=== PATIENT | male | born 1965 | race Caucasian/White ===

== ENCOUNTER 2017-11-03 15:04 | Inpatient (IN) | payer OTHER ==
[~2017-11-03] VITALS: Ht 188 cm; Wt 90.3 kg
[2017-11-03] MEDS ORDERED: OXYC-302 PO (16:06)
[2017-11-03] MEDS ORDERED: SULF1TAB24 PO (16:06)
[2017-11-03] MEDS ORDERED: ONDA4TAB10 PO (16:06)
[2017-11-03] MEDS ORDERED: MORPHINE SULFATE 4 MG/ML, 1ML IVPush PRN (17:00)
[2017-11-03] MEDS ORDERED: SODIUM CHLORIDE 0.9% 1,000ML IV ONE (17:00)
[2017-11-03] MEDS ORDERED: ONDANSETRON 2MG/ML, 2ML IVPush ONE (17:00)
[2017-11-03] MEDS ORDERED: SODIUM CHLORIDE FLUSH 10ML SYR IVF ONE (17:00)
[2017-11-03] MEDS ORDERED: ONDANSETRON 2MG/ML, 2ML ONE (17:00)
[2017-11-03] MEDS ORDERED: MORPHINE SULFATE 4 MG/ML, 1ML ONE (17:00)
[2017-11-03 17:12] LABS: MEAN CORPUSCULAR HEMOGLOBIN 30.7 pg (27.5-34.5); MEAN CORPUSCULAR HGB CONC 32.6 g/dL (33.2-36.2); MEAN CORPUSCULAR VOLUME 94.1 fL (81-97); PLATELET COUNT 321 x10^3/uL (130-400); RED BLOOD COUNT 4.55 x10^6/uL (4.38-5.82); RED CELL DISTRIBUTION WIDTH 15.2 % (9.4-14.8)
[2017-11-03 17:19] LABS: ALBUMIN 3.7 g/dL (3.4-5.0); ANION GAP 6 mmol/L (5-15); CALCIUM 9.4 mg/dL (8.5-10.1); CHLORIDE 100 mmol/L (98-107)
[2017-11-03 17:23] LABS: ALANINE AMINOTRANSFERASE 26 U/L (12-78); ALKALINE PHOSPHATASE 122 U/L (45-117); BILIRUBIN,TOTAL 0.6 mg/dL (0.2-1.0); CREATININE 2.38 mg/dL (0.7-1.3); TOTAL PROTEIN 9.7 g/dL (6.4-8.2)
[2017-11-03 17:31] LABS: MICROSCOPIC AUTO
[2017-11-03 17:35] LABS: MD YES
[2017-11-03 17:36] LABS: CULTURE INDICATED? YES
[2017-11-03 17:38] LABS: BAND#(MANUAL) 2.33 x10^3/uL; BANDS%(MANUAL) 9 % (0-7); EOS#(MANUAL) 1.04 x10^3/uL (0.0-0.4); EOS% (MANUAL) 4 % (1-7); LYMPH#(MANUAL) 1.55 x10^3/uL (1-3.4); LYMPHS% (MANUAL) 6 % (22-44); MONOS#(MANUAL) 1.55 x10^3/uL (0.3-2.7); MONOS% (MANUAL) 6 % (2-9); SEG#(MANUAL) 19.43 x10^3/uL (1.8-6.8); SEGS% (MANUAL) 75 % (42-75)
[2017-11-03 17:39] LABS: <PLATELET ESTIMATE> ADEQUATE; <PLT MORPHOLOGY> NORMAL PLT MORPH; ANISOCYTOSIS 1+; TOXIC GRAN 1+
[2017-11-03] MEDS ORDERED: CEFTRIAXONE PMX 1GM/50ML 50 ML ONE (18:49)
[2017-11-03] MEDS ORDERED: HYDROmorphone 2 MG/ML, 1ML ONE ×2 (18:50→19:09)
[2017-11-03] MEDS ORDERED: HYDROmorphone 1 MG/ML, 1ML IVPush PRN (19:00)
[2017-11-03] MEDS ORDERED: SODIUM CHLORIDE 0.9% 1,000ML IVBOLUS ONE (19:00)
[2017-11-03] MEDS ORDERED: CEFTRIAXONE PMX 1GM/50ML 50 ML IVPB ONE (19:00)
[2017-11-03 20:00] VITALS: BP 153/84
[2017-11-03] MEDS ORDERED: TEMAZEPAM 15 MG CAPSULE PO PRN (20:00)
[2017-11-03] MEDS ORDERED: hydrALAzine 20 MG/ML, 1ML IVPush PRN (20:00)
[2017-11-03] MEDS ORDERED: morphine SULFATE 10 MG/ML, 1ML IVPush PRN (20:00)
[2017-11-03] MEDS ORDERED: DOCUSATE 100 MG CAPSULE PO PRN (20:00)
[2017-11-03] MEDS ORDERED: ACETAMINOPHEN 325 MG TABLET PO PRN (20:00)
[2017-11-03] MEDS ORDERED: ONDANSETRON 2MG/ML, 2ML IVPush PRN (20:00)
[2017-11-03] MEDS ORDERED: HYDROmorphone 2 MG/ML, 1ML IVPush PRN (22:00)
[2017-11-03] MEDS: HEPARIN 5,000 UNITS/ML, 1ML SQ SCH (22:11)
[2017-11-03] MEDS: SODIUM CHLORIDE 0.9% 1,000 ML IV SCH (22:12)
[2017-11-04 02:20] VITALS: BP 127/75
[2017-11-04 05:28] LABS: MEAN CORPUSCULAR HEMOGLOBIN 30.9 pg (27.5-34.5); MEAN CORPUSCULAR HGB CONC 32.9 g/dL (33.2-36.2); MEAN CORPUSCULAR VOLUME 93.9 fL (81-97); MEAN PLATELET VOLUME 8.2 fL (7.4-10.4); PLATELET COUNT 353 x10^3/uL (130-400); RED CELL DISTRIBUTION WIDTH 14.9 % (9.4-14.8)
[2017-11-04 05:40] LABS: ANION GAP 6 mmol/L (5-15); CALCIUM 8.6 mg/dL (8.5-10.1); CHLORIDE 103 mmol/L (98-107)
[2017-11-04] MEDS: CEFTRIAXONE 1,000 MG in DEXTROSE 5% 50 ML IV SCH ×2 (06:18→18:04)
[2017-11-04] MEDS: HEPARIN 5,000 UNITS/ML, 1ML SQ SCH ×3 (06:18→22:14)
[2017-11-04] MEDS: SODIUM CHLORIDE 0.9% 1,000 ML IV SCH ×3 (06:19→23:20)
[2017-11-04 06:33] LABS: MD YES
[2017-11-04 06:35] LABS: BAND#(MANUAL) 2.17 x10^3/uL; BANDS%(MANUAL) 10 % (0-7); EOS#(MANUAL) 0.22 x10^3/uL (0.0-0.4); EOS% (MANUAL) 1 % (1-7); LYMPH#(MANUAL) 2.82 x10^3/uL (1-3.4); LYMPHS% (MANUAL) 13 % (22-44); MONOS#(MANUAL) 0.65 x10^3/uL (0.3-2.7); MONOS% (MANUAL) 3 % (2-9); SEG#(MANUAL) 15.84 x10^3/uL (1.8-6.8); SEGS% (MANUAL) 73 % (42-75)
[2017-11-04 06:36] LABS: <PLATELET ESTIMATE> ADEQUATE; <PLT MORPHOLOGY> NORMAL PLT MORPH; <RBC MORPHOLOGY> NORMAL; TOXIC GRAN 1+
[2017-11-04] MEDS ORDERED: CEFTRIAXONE PMX 1GM/50ML 50 ML IV SCH (07:00)
[2017-11-04 08:30] VITALS: BP 107/68
[2017-11-04 14:30] VITALS: BP 119/73
[2017-11-04 18:54] VITALS: BP 103/55
[2017-11-05 04:13] VITALS: BP 144/83
[2017-11-05 05:27] LABS: MEAN CORPUSCULAR HEMOGLOBIN 31.1 pg (27.5-34.5); MEAN CORPUSCULAR HGB CONC 33.1 g/dL (33.2-36.2); MEAN CORPUSCULAR VOLUME 93.9 fL (81-97); MEAN PLATELET VOLUME 8.3 fL (7.4-10.4); PLATELET COUNT 374 x10^3/uL (130-400); RED BLOOD COUNT 4.23 x10^6/uL (4.38-5.82); RED CELL DISTRIBUTION WIDTH 15.1 % (9.4-14.8)
[2017-11-05 05:34] LABS: CALCIUM 9.3 mg/dL (8.5-10.1); CHLORIDE 107 mmol/L (98-107)
[2017-11-05 06:14] LABS: BASOPHILS # (AUTO) 0.07 x10^3/uL (0-0.1); BASOPHILS % (AUTO) 1 % (0-1); EOSINOPHILS # (AUTO) 0.26 x10^3/uL (0-0.4); EOSINOPHILS % (AUTO) 3 % (1-7); LYMPHOCYTES # (AUTO) 3.25 x10^3/uL (1-3.4); LYMPHOCYTES % (AUTO) 31 % (22-44); MD SCAN; MONOCYTES # (AUTO) 0.99 x10^3/uL (0.2-0.8); MONOCYTES % (AUTO) 9 % (2-9); NEUTROPHILS # (AUTO) 5.97 x10^3/uL (1.8-6.8); NEUTROPHILS % (AUTO) 57 % (42-75)
[2017-11-05 06:16] LABS: ANION GAP 6 mmol/L (5-15)
[2017-11-05] MEDS: CEFTRIAXONE 1,000 MG in DEXTROSE 5% 50 ML IV SCH ×2 (06:27→18:12)
[2017-11-05] MEDS: HEPARIN 5,000 UNITS/ML, 1ML SQ SCH ×3 (06:28→22:09)
[2017-11-05 07:41] VITALS: BP 114/68
[2017-11-05] MEDS: SODIUM CHLORIDE 0.9% 1,000 ML IV SCH ×2 (08:47→18:11)
[2017-11-05 13:23] VITALS: BP 149/80
[2017-11-05] MEDS ORDERED: OXYcodone/APAP 5/325MG TABLET ONE (18:20)
[2017-11-05] MEDS: OXYcodone/APAP 5/325MG TABLET PO PRN (18:22)
[2017-11-05 19:30] VITALS: BP 149/79
[2017-11-06 01:55] VITALS: BP 140/81
[2017-11-06] MEDS: SODIUM CHLORIDE 0.9% 1,000 ML IV SCH ×3 (05:30→22:17)
[2017-11-06] MEDS: HEPARIN 5,000 UNITS/ML, 1ML SQ SCH ×3 (05:30→22:18)
[2017-11-06] MEDS: CEFTRIAXONE 1,000 MG in DEXTROSE 5% 50 ML IV SCH (05:30)
[2017-11-06 05:31] LABS: CHLORIDE 109 mmol/L (98-107)
[2017-11-06 05:48] LABS: ANION GAP 8 mmol/L (5-15); CALCIUM 9.2 mg/dL (8.5-10.1); CREATININE 1.18 mg/dL (0.7-1.3)
[2017-11-06 07:27] VITALS: BP 138/67
[2017-11-06] MEDS: OXYcodone/APAP 5/325MG TABLET PO PRN (07:37)
[2017-11-06 08:25] LABS: CLOSTRIDIUM DIFFICILE ANTIGEN NEGATIVE; CLOSTRIDIUM DIFFICILE TOXIN NEGATIVE (Negative)
[2017-11-06] MEDS ORDERED: DIPHENOXYLATE/ATROPINE TABLET PO PRN (13:30)
[2017-11-06] MEDS: AMPICILLIN/SULBACTAM 3 GM in SODIUM CHLORIDE 0.9% 100 ML IV SCH ×2 (13:47→19:43)
[2017-11-06 14:04] VITALS: BP 122/77
[2017-11-06 19:23] VITALS: BP 124/69
[2017-11-07] MEDS: AMPICILLIN/SULBACTAM 3 GM in SODIUM CHLORIDE 0.9% 100 ML IV SCH ×2 (01:34→08:45)
[2017-11-07 03:23] VITALS: BP 159/80
[2017-11-07] MEDS: OXYcodone/APAP 5/325MG TABLET PO PRN ×3 (05:13→22:46)
[2017-11-07 05:18] LABS: BASOPHILS # (AUTO) 0.06 x10^3/uL (0-0.1); BASOPHILS % (AUTO) 1 % (0-1); EOSINOPHILS # (AUTO) 0.24 x10^3/uL (0-0.4); EOSINOPHILS % (AUTO) 2 % (1-7); LYMPHOCYTES # (AUTO) 3.29 x10^3/uL (1-3.4); LYMPHOCYTES % (AUTO) 31 % (22-44); MD NO; MEAN CORPUSCULAR HEMOGLOBIN 31.1 pg (27.5-34.5); MEAN CORPUSCULAR HGB CONC 32.9 g/dL (33.2-36.2); MEAN CORPUSCULAR VOLUME 94.7 fL (81-97); MEAN PLATELET VOLUME 8.8 fL (7.4-10.4); MONOCYTES # (AUTO) 0.89 x10^3/uL (0.2-0.8); MONOCYTES % (AUTO) 8 % (2-9); NEUTROPHILS # (AUTO) 6.33 x10^3/uL (1.8-6.8); NEUTROPHILS % (AUTO) 59 % (42-75); PLATELET COUNT 438 x10^3/uL (130-400); RED BLOOD COUNT 4.06 x10^6/uL (4.38-5.82); RED CELL DISTRIBUTION WIDTH 15.2 % (9.4-14.8)
[2017-11-07 05:26] LABS: CHLORIDE 110 mmol/L (98-107)
[2017-11-07] MEDS: HEPARIN 5,000 UNITS/ML, 1ML SQ SCH ×3 (05:27→22:35)
[2017-11-07 05:30] LABS: ANION GAP 9 mmol/L (5-15); CALCIUM 8.7 mg/dL (8.5-10.1); CREATININE 1.09 mg/dL (0.7-1.3)
[2017-11-07] MEDS: SODIUM CHLORIDE 0.9% 1,000 ML IV SCH ×3 (05:59→22:31)
[2017-11-07 06:50] VITALS: BP 145/88
[2017-11-07 14:21] VITALS: BP 144/83
[2017-11-07] MEDS: ERTAPENEM 1 GM in SODIUM CHLORIDE 0.9% 50 ML IV SCH (14:25)
[2017-11-07 19:36] VITALS: BP 135/73
[2017-11-08 02:58] VITALS: BP 120/72
[2017-11-08] MEDS: SODIUM CHLORIDE 0.9% 1,000 ML IV SCH ×3 (05:38→21:00)
[2017-11-08] MEDS: HEPARIN 5,000 UNITS/ML, 1ML SQ SCH ×3 (06:46→22:25)
[2017-11-08] MEDS: OXYcodone/APAP 5/325MG TABLET PO PRN ×2 (06:50→18:35)
[2017-11-08 07:28] VITALS: BP 124/66
[2017-11-08 12:58] VITALS: BP 139/72
[2017-11-08] MEDS: ERTAPENEM 1 GM in SODIUM CHLORIDE 0.9% 50 ML IV SCH (13:18)
[2017-11-08 20:43] VITALS: BP 138/71
[2017-11-09 03:41] VITALS: BP 125/69
[2017-11-09] MEDS: SODIUM CHLORIDE 0.9% 1,000 ML IV SCH (05:00)
[2017-11-09] MEDS: HEPARIN 5,000 UNITS/ML, 1ML SQ SCH (06:00)
[2017-11-09 08:09] VITALS: BP 126/75
[2017-11-09] MEDS: ERTAPENEM 1 GM in SODIUM CHLORIDE 0.9% 50 ML IV SCH (12:47)
[2017-11-09] MEDS ORDERED: ERTA1VIA IV (12:54)
[2017-11-09 13:30] VITALS: BP 125/62
== END 2017-11-09 13:40 | disposition home or self-care (01) | DRG 391 ==
LOC: ED 18:17 → EDIP 18:45 → 4NOR 19:40
PROVIDERS: ADMIT Surgery; ATTEND Family Medicine
PROC: 02HV33Z Insertion of Infusion Device into Superior Vena Cava, Percutaneous Approach (ICD-10-PCS; principal; 2017-11-08)
PROC: B5181ZA Fluoroscopy of Superior Vena Cava using Low Osmolar Contrast, Guidance (ICD-10-PCS; 2017-11-08)
PROC: B548ZZA Ultrasonography of Superior Vena Cava, Guidance (ICD-10-PCS; 2017-11-08)
DX: A09 Infectious gastroenteritis and colitis, unspecified (principal); N17.0 Acute kidney failure with tubular necrosis; N13.2 Hydronephrosis with renal and ureteral calculous obstruction; E87.1 Hypo-osmolality and hyponatremia; R78.81 Bacteremia; N39.0 Urinary tract infection, site not specified; A49.01 Methicillin susceptible Staphylococcus aureus infection, unspecified site; D72.825 Bandemia; I10 Essential (primary) hypertension; J45.909 Unspecified asthma, uncomplicated
CPT/HCPCS: 36415; 36569; 74176; 76770; 76937; 77001; 80048; 80053; 81001; 82360; 83605; 85025; 87040; 87077; 87086; 87147; 87186; 87324; 96361; 96365; 96375; J0295; J0696; J1170; J1335; J1644; J2405; C1751; J7030